=== PATIENT | male | born 1985 | race Caucasian/White ===

== ENCOUNTER 2017-07-16 17:09 | Emergency (ER) | payer SELFPAY ==
[2017-07-16] MEDS ORDERED: IBUPROFEN 400 MG TABLET (FP) PO ONE ×2 (17:51→18:25)
--- NOTE | 2017-07-16 17:51 | PDOC ---
Rapid Medical Evaluation Time Seen by Provider: 07/16/17 17:49 Medical Evaluation: 07/16/17 17:49 I have performed a brief in-person evaluation of this patient. The patient presents with a chief complaint of: PECK and nausea x 1 month, getting worse. No prior medical intervention. No pmhx Pertinent physical exam findings:Stable w/ no focal neuro deficits I have ordered the following: motrin 800mg The patient will proceed to the ED for further evaluation. 07/16/17 17:51
[2017-07-16 17:54] VITALS: BP 144/95; PULSE 74; TEMP 98.3; BMI 38.0
--- NOTE | 2017-07-16 19:03 | PDOC ---
History of Present Illness - General Chief Complaint: Headache Stated Complaint: FEVER/VOMITING Time Seen by Provider: 07/16/17 17:49 History Source: Patient, Spouse Exam Limitations: No Limitations - History of Present Illness Initial Comments: 07/16/17 18:56 This is a 31-year-old male without significant past medical presents emergency Department with 1 month of headache with nausea. Patient states the headache and nausea have been intermittent with no identifiable pattern. States the pain has been constant for the past 4 days despite taking 400 mg of Motrin every 6 hours. He has not been experiencing nausea for the past 4 days now. Patient states he is able to tolerate fluids without difficulty. Patient has no photophobia or phonophobia. Full range of motion of his neck. Patient denies sick contacts. Patient also reports foul smelling yellow nasal discharge over this past month also. Past History - Past Medical History Allergies/Adverse Reactions: Allergies Allergy/AdvReac Type Severity Reaction Status Date / Time No Known Allergies Allergy Verified 07/16/17 17:49 Home Medications: Ambulatory Orders Metoclopramide HCl [Reglan -] 10 mg PO Q6H PRN #7 tablet 07/16/17 COPD: No DVT: No - Immunization History Immunization Up to Date: Yes - Suicide/Smoking/Psychosocial Hx Smoking History: Never smoked Have you smoked in the past 12 months: No Information on smoking cessation initiated: No Hx Alcohol Use: No Drug/Substance Use Hx: No Substance Use Type: None Review of Systems - Review of Systems Able to Perform ROS?: Yes Is the patient limited Macedonian proficient: No Constitutional: No: Symptoms Reported HEENTM: Yes: See HPI Respiratory: No: Symptoms reported Cardiac (ROS): No: Symptoms Reported ABD/GI: No: Symptoms Reported : No: Symptoms Reported Musculoskeletal: No: Symptoms Reported Integumentary: No: Symptoms Reported Neurological: Yes: See HPI Endocrine: No: Symptoms Reported Hematologic/Lymphatic: No: Symptoms Reported *Physical Exam - Vital Signs Last Vital Signs Temp Pulse Resp BP Pulse Ox 98.3 F 74 16 144/95 98 07/16/17 17:50 07/16/17 17:50 07/16/17 17:50 07/16/17 17:50 07/16/17 17:50 - Physical Exam General Appearance: Yes: Appropriately Dressed. No: Apparent Distress HEENT: positive: Nasal Congestion, Sinus Tenderness, Hearing Grossly Normal. negative: Photophobia, Muffled/Hoarse voice, Pharyngeal Erythema, Tonsillar Exudate, Tonsillar Erythema Neck: positive: Trachea midline, Supple Respiratory/Chest: positive: Lungs Clear, Normal Breath Sounds. negative: Respiratory Distress, Accessory Muscle Use Cardiovascular: positive: Regular Rhythm, Regular Rate, S1, S2. negative: Edema , Murmur Musculoskeletal: positive: Normal Inspection Neurologic: positive: spring maker II-XII NML intact, Fully Oriented, Alert, Normal Mood/ Affect, Normal Response, Motor Strength 5/5, Finger to Nose ED Treatment Course - Medications Given in the ED: ED Medications Discontinued Medications Generic Name Dose Route Start Last Admin Trade Name Freq PRN Reason Stop Dose Admin Ibuprofen 800 mg 07/16/17 17:51 07/16/17 18:27 Motrin - PO 07/16/17 17:52 800 mg ONCE ONE Administration Medical Decision Making - Medical Decision Making 07/16/17 19:06 A/P: 31-year-old male without medical history with 1 month of intermittent headache which has become constant over the past 4 days. Tenderness to maxillary sinuses Nasal inflammation noted Oropharynx clear without erythema or exudates Cranial nerves II through XII grossly intact. Patient with appropriate rapid alternating movements and finger to nose testing. 600 mg of Motrin orally now Reassess 07/16/17 19:31 Patient with minimal relief of headache after Motrin. I will give 10 mg of by mouth Reglan and 25 mg of by mouth Benadryl and reevaluate. 07/16/17 20:31 Patient states headache is currently 5/10 which he states is acceptable pain relief. I will discharge the patient with prescription for Reglan and instructed take Benadryl with the Reglan. I'll give the patient a referral to [facility]. *DC/Admit/Observation/Transfer Diagnosis at time of Disposition: Headache in back of head - Discharge Dispostion Disposition: HOME Condition at time of disposition: Stable Admit: No - Prescriptions Prescriptions: Metoclopramide HCl [Reglan -] 10 mg PO Q6H PRN #7 tablet PRN Reason: Headache - Referrals Referrals: Ab Guzmán MD [Staff Physician] - - Patient Instructions Additional Instructions: Take Reglan 10 mg every 6 hours as needed for headaches. Take Motrin as needed for headaches. Follow manufacturers instructions for appropriate dosage. Take Benadryl 25 mg whenever you take the Reglan. You have been given a referral for primary doctor. Please call for appointment for evaluation within the next 2 weeks. Return to emergency department for worsening headache, dizziness, confusion, nausea, vomiting, blurry vision or any other concerns. Thank you very much for choosing us to provide your emergent healthcare needs. - Post Discharge Activity
[2017-07-16] MEDS ORDERED: diphenhydrAMINE HCL 25 MG CAPSULE (FP) PO ONE ×2 (19:33→19:42)
[2017-07-16] MEDS ORDERED: METOCLOPRAMIDE HCL 10 MG TABLET (FP) PO ONE ×2 (19:33→19:42)
== END 2017-07-16 20:37 | disposition home or self-care (01) ==
LOC: JERFT 17:09 → JER 17:09 → JERFT 20:37
DX: R51 Headache (principal)
CPT/HCPCS: 99281-25

== ENCOUNTER 2020-11-14 02:45 | Observation (INO) | payer OTHER ==
[2020-11-14 03:54] LABS: BASO % 0.9 % (0-2.0); EOS % 2.9 % (0-4.5); HEMATOCRIT 46.6 % (35.4-49); HEMOGLOBIN 15.2 GM/dL (11.7-16.9); LYMPH % 35.4 % (8-40); MCH 28.5 pg (25.7-33.7); MCHC 32.7 g/dl (32.0-35.9); MEAN CELL VOLUME 87.1 fl (80-96); MEAN PLT VOLUME 8.7 fl (7.5-11.1); NEUT % 48.8 % (42.8-82.8); PLATELET COUNT 231 K/MM3 (134-434); RBC 5.35 M/mm3 (4.00-5.60); RDW 13.6 % (11.9-15.9); WHITE BLOOD COUNT 6.6 K/mm3 (4.0-10.0)
[2020-11-14 04:01] LABS: INR 1.04 (0.83-1.09); PROTHROMBIN TIME (PATIENT) 12.6 SEC (9.7-13.0)
[2020-11-14 04:04] LABS: ACTIVATED PTT 29.1 SECONDS (25.2-36.5)
[2020-11-14 04:14] LABS: CHLORIDE 107 mmol/L (98-107); SODIUM 142 mmol/L (136-145)
[2020-11-14 04:16] LABS: CALCIUM 8.8 mg/dL (8.5-10.1)
[2020-11-14 04:17] LABS: ANION GAP 6 MMOL/L (8-16); CO2 30 mmol/L (21-32); GLUCOSE,RANDOM 95 mg/dL (74-106)
[2020-11-14 04:19] LABS: CHOLESTEROL 213 mg/dL (50-200); TRIGLYCERIDES 174 mg/dL (0-150)
[2020-11-14 04:20] LABS: CREATININE 1.2 mg/dL (0.55-1.3); LDL CHOLESTEROL (ONLY SJRH) 136 mg/dL (5-100); SGOT/AST 23 U/L (15-37); SGPT/ALT 39 U/L (13-61)
[2020-11-14 04:21] LABS: BILIRUBIN,TOTAL 0.2 mg/dL (0.2-1); TOT PROT 7.3 g/dl (6.4-8.2)
[2020-11-14 04:22] LABS: HDL CHOLESTEROL 31 mg/dL (40-60)
[2020-11-14 04:23] LABS: ALK PHOS 90 U/L (45-117)
[2020-11-14] MEDS ORDERED: ACETAMINOPHEN 500 MG TABLET (FP) PO ONE (04:29)
[2020-11-14] MEDS ORDERED: MECLIZINE HCL 12.5 MG TABLET PO ONE (04:30)
[2020-11-14] MEDS ORDERED: ASPIRIN 81 MG CHEWABLE TABLETS PO ONE ×2 (04:34→07:07)
[2020-11-14] MEDS ORDERED: ACETAMINOPHEN 325 MG TABLET (FP) ONE (04:46)
[2020-11-14] MEDS ORDERED: MECLIZINE HCL 12.5 MG TABLET ONE (04:46)
[2020-11-14] MEDS ORDERED: SODIUM CHLORIDE 1,000 ML IV STA (04:48)
[2020-11-14] MEDS ORDERED: METOCLOPRAMIDE HCL INJECTION 10 MG/2 ML VIAL IVPUSH ONE (04:48)
[2020-11-14 04:51] LABS: PH,URINE 5.5 (5.0-8.0); URINE APPEARANCE CLEAR; URINE BILIRUBIN NEGATIVE (NEGATIVE); URINE COLOR YELLOW; URINE GLUCOSE (UA) NEGATIVE (NEGATIVE); URINE KETONE NEGATIVE (NEGATIVE); URINE LEUK ESTERASE NEGATIVE (NEGATIVE); URINE NITRITE NEGATIVE (NEGATIVE); URINE PROTEIN NEGATIVE (NEGATIVE); URINE UROBILINOGEN 0.2 mg/dL (0.2-1.0)
[2020-11-14] MEDS ORDERED: METOCLOPRAMIDE HCL INJECTION 10 MG/2 ML VIAL ONE (04:55)
[2020-11-14] MEDS ORDERED: ASPIRIN 81 MG CHEWABLE TABLETS ONE ×2 (07:13→09:45)
[2020-11-14 08:26] LABS: CSF APPEARANCE CLEAR; CSF COLOR COLORLESS
[2020-11-14 08:27] LABS: CSF WBC 4
[2020-11-14] MEDS ORDERED: MECLIZINE HCL 12.5 MG TABLET PO PRN ×2 (09:42→09:59)
[2020-11-14] MEDS ORDERED: MECLIZINE HCL 25 MG TABLET (FP) ONE (09:45)
[2020-11-14] MEDS ORDERED: ASPIRIN 81 MG CHEWABLE TABLETS PO SCH (10:00)
[2020-11-14] MEDS ORDERED: ATORVASTATIN CA 80 MG TABLET (FP) PO ONE (10:03)
[2020-11-14] MEDS ORDERED: ATORVASTATIN CA 80 MG TABLET (FP) ONE (10:26)
[2020-11-14 18:39] VITALS: BMI 27.2
[2020-11-14] MEDS ORDERED: ATORVASTATIN CA 10 MG TABLET (FP) PO SCH (22:00)
[2020-11-15 07:33] LABS: HEMATOCRIT 45.7 % (35.4-49); HEMOGLOBIN 15.1 GM/dL (11.7-16.9); MCH 29.1 pg (25.7-33.7); MCHC 33.1 g/dl (32.0-35.9); MEAN CELL VOLUME 88.2 fl (80-96); PLATELET COUNT 207 K/MM3 (134-434); RBC 5.18 M/mm3 (4.00-5.60); RDW 13.9 % (11.9-15.9)
[2020-11-15 08:10] LABS: BLOOD UREA NITROGEN 12.8 mg/dL (7-18); MAGNESIUM 2.2 mg/dL (1.8-2.4)
[2020-11-15 08:13] LABS: PHOSPHOROUS 3.3 mg/dL (2.5-4.9)
[2020-11-15] MEDS: ASPIRIN 81 MG CHEWABLE TABLETS PO SCH (09:33)
[2020-11-15] MEDS: ACETAMINOPHEN 1000 MG/100 ML VIAL (NON FORMULARY) IVPB PRN (09:33)
[2020-11-15] MEDS ORDERED: SUMAtriptan SUCCINATE 50 MG TABLET PO SCH (12:45)
[2020-11-15] MEDS ORDERED: SUMAtriptan SUCCINATE 50 MG TABLET PO PRN (18:00)
[2020-11-16] MEDS: ACETAMINOPHEN 1000 MG/100 ML VIAL (NON FORMULARY) IVPB PRN (06:15)
[2020-11-16 07:03] LABS: HEMATOCRIT 46.5 % (35.4-49); HEMOGLOBIN 15.5 GM/dL (11.7-16.9); MCH 29.1 pg (25.7-33.7); MCHC 33.3 g/dl (32.0-35.9); MEAN CELL VOLUME 87.3 fl (80-96); MEAN PLT VOLUME 8.7 fl (7.5-11.1); PLATELET COUNT 203 K/MM3 (134-434); RBC 5.33 M/mm3 (4.00-5.60); RDW 13.3 % (11.9-15.9); WHITE BLOOD COUNT 6.3 K/mm3 (4.0-10.0)
[2020-11-16 07:32] LABS: CHLORIDE 105 mmol/L (98-107); SODIUM 140 mmol/L (136-145)
[2020-11-16 07:34] LABS: ANION GAP 5 MMOL/L (8-16); BLOOD UREA NITROGEN 14.5 mg/dL (7-18); CALCIUM 9.2 mg/dL (8.5-10.1); CO2 30 mmol/L (21-32)
[2020-11-16 07:35] LABS: GLUCOSE,RANDOM 93 mg/dL (74-106)
[2020-11-16 07:38] LABS: CREATININE 1.1 mg/dL (0.55-1.3)
[2020-11-16] MEDS: ASPIRIN 81 MG CHEWABLE TABLETS PO SCH (09:11)
[2020-11-16] MEDS ORDERED: FAMOTIDINE 20 MG TABLET PO ONE (09:30)
[2020-11-16] MEDS ORDERED: ENOXAPARIN NA (PORCINE) 40 MG/0.4 ML DISP.SYRIN SQ SCH (10:00)
[2020-11-16 15:05] VITALS: BP 111/59; PULSE 70; TEMP 98.6
== END 2020-11-16 15:28 | disposition home or self-care (01) ==
LOC: JER 02:45 → JERBED 08:45 → UNDOADMOB 08:45 → INTOOBSV 08:45 → JERBED 10:55 → J4W 17:23
PROVIDERS: ATTEND Internal Medicine
PROC: 3E023GC Introduction of Other Therapeutic Substance into Muscle, Percutaneous Approach (ICD-10-PCS; principal; 2020-11-14)
PROC: 3E033NZ Introduction of Analgesics, Hypnotics, Sedatives into Peripheral Vein, Percutaneous Approach (ICD-10-PCS; 2020-11-14)
PROC: 009U3ZX Drainage of Spinal Canal, Percutaneous Approach, Diagnostic (ICD-10-PCS; 2020-11-14)
DX: R51.9 Headache, unspecified (principal); R53.1 Weakness; R42 Dizziness and giddiness; R20.0 Anesthesia of skin; R20.2 Paresthesia of skin
CPT/HCPCS: 36415; 62270; 70450-TC; 70496-TC; 70498-TC; 70551-TC; 71045-TC-FY; 71046-TC-FY; 80048; 80053; 80061; 81003; 82550; 82553; 82945; 83036; 83090; 83721; 83735; 84100; 84157; 84443; 84484; 85025; 85027; 85610; 85730; 86850; 86900; 86901; 87070; 87205; 93005; 93010; 96372; 96374; 97116-GP; 97161-GP; 99285-25; C9803; G0378; J0131; U0003; U0005

== ENCOUNTER 2021-03-07 18:58 | Emergency (ER) | payer OTHER ==
[2021-03-07 19:11] VITALS: BP 129/85; PULSE 60; TEMP 98.2; BMI 27.9
[2021-03-07] MEDS ORDERED: KETOROLAC TROMETHAMINE 30 MG/1 ML VIAL IM ONE (19:52)
[2021-03-07] MEDS ORDERED: LIDOCAINE 5% TOPICAL PATCH TP ONE (19:52)
[2021-03-07] MEDS ORDERED: LIDOCAINE 5% TOPICAL PATCH ONE (20:13)
[2021-03-07] MEDS ORDERED: KETOROLAC TROMETHAMINE 30 MG/1 ML VIAL ONE (20:13)
[2021-03-08] MEDS ORDERED: LIDOCAINE PATCH REMOVAL MC SCH (08:00)
== END 2021-03-07 21:43 | disposition home or self-care (01) ==
LOC: JERFT 18:58 → JER 18:58 → JERFT 21:43
PROC: 3E0233Z Introduction of Anti-inflammatory into Muscle, Percutaneous Approach (ICD-10-PCS; principal; 2021-03-07)
DX: M54.5 Low back pain (principal); W50.0XXA Accidental hit or strike by another person, initial encounter; Y93.66 Activity, soccer
CPT/HCPCS: 71046-TC-FY; 72100-TC-FY; 99284-25

== ENCOUNTER 2023-11-17 20:35 | Emergency (ER) | payer SELFPAY ==
[2023-11-17 20:49] VITALS: TEMP 98.5; BMI 32.3
[2023-11-17] MEDS ORDERED: METOCLOPRAMIDE HCL INJECTION 10 MG/2 ML VIAL ONE (22:12)
[2023-11-17] MEDS ORDERED: ACETAMINOPHEN INJECTION 100 ML IVPB ONE (22:12)
[2023-11-17 22:14] LABS: BASO % 0.8 % (0-2.0); EOS % 6.6 % (0-4.5); HEMATOCRIT 44.6 % (35.4-49); HEMOGLOBIN 15.1 GM/dL (11.7-16.9); LYMPH % 23.1 % (8-40); MCH 28.9 pg (25.7-33.7); MEAN CELL VOLUME 85.1 fl (80-96); MEAN PLT VOLUME 7.6 fl (7.5-11.1); MONO % 17.3 % (3.8-10.2); NEUT % 52.2 % (42.8-82.8); PLATELET COUNT 249 10^3/uL (134-434); RBC 5.24 M/mm3 (4.00-5.60); RDW 13.7 % (11.9-15.9); WHITE BLOOD COUNT 6.8 K/mm3 (4.0-10.0)
[2023-11-17] MEDS: ACETAMINOPHEN 1000 MG/100 ML BAG IVPB ONE (22:17)
[2023-11-17] MEDS: SODIUM CHLORIDE 0.9% 500 ML INFUS.BAG IV ONE (22:17)
[2023-11-17] MEDS: METOCLOPRAMIDE HCL INJECTION 10 MG/2 ML VIAL IVPUSH ONE (22:18)
[2023-11-17 22:22] LABS: INR 1.05 (0.83-1.09); PROTHROMBIN TIME (PATIENT) 11.8 SEC (9.7-13.0)
[2023-11-17 22:25] LABS: ACTIVATED PTT 29.7 SECONDS (25.2-36.5)
[2023-11-17 22:34] LABS: POTASSIUM 3.8 mmol/L (3.5-5.1)
[2023-11-17 22:36] LABS: CALCIUM 8.7 mg/dL (8.5-10.1)
[2023-11-17 22:37] LABS: ALBUMIN 3.7 g/dl (3.4-5.0); BLOOD UREA NITROGEN 10.8 mg/dL (7-18)
[2023-11-17 22:41] LABS: TOT PROT 7.3 g/dl (6.4-8.2)
[2023-11-17 22:42] LABS: BILIRUBIN,TOTAL 0.2 mg/dL (0.2-1)
[2023-11-17 23:21] VITALS: BP 118/65; PULSE 74; RESP 17
== END 2023-11-18 01:05 | disposition home or self-care (01) ==
LOC: JER 20:35
PROC: 3E033NZ Introduction of Analgesics, Hypnotics, Sedatives into Peripheral Vein, Percutaneous Approach (ICD-10-PCS; principal; 2023-11-17)
PROC: 3E033GC Introduction of Other Therapeutic Substance into Peripheral Vein, Percutaneous Approach (ICD-10-PCS; 2023-11-17)
DX: R51.9 Headache, unspecified (principal); R07.81 Pleurodynia; R11.2 Nausea with vomiting, unspecified; Z20.822 Contact with and (suspected) exposure to COVID-19
CPT/HCPCS: 0241U-QW; 36415; 71046-TC-FY; 80053; 84484; 85025; 85610; 85730; 86850; 86900; 86901; 93005; 93010; 99285-25; J0131